=== PATIENT | male | born 1985 | race Caucasian/White ===

== ENCOUNTER 2019-11-09 07:55 | Emergency (ER) | payer OTHER ==
[~2019-11-09] VITALS: Ht 180.3 cm; Wt 118.4 kg
--- NOTE | 2019-11-09 08:06 | PHYS DOC ---
Past History Past Medical History: Asthma Past Surgical History: No Surgical History Smoking: Quit Less Than 1 Year Alcohol Use: Rarely Drug Use: None General Adult EDM: Chief Complaint: COUGH HPI: HPI: Patient is a 34 year old male who presents for evaluation of congestion, shortness of air and a bloody nose overnight. Pt is sweaty on arrival. Pt is currently living in the [facility] [address] and had recently been incarcerated at [place]. Pt is in mild distress on arrival. Pt has a history of asthma. Sats were 94% on arrival. Pt is in mild distress with minimal tachypnea. Pt needs asthma medication filled. Pt clarified he is NOT coughing up blood like initial staff assessment statement. Pt is in the negative pressure room. Pt has had a recent negative COVID swab in the past week that was negative. Review of Systems: Review of Systems: Constitutional: has fever or chills Eyes: Denies change in visual acuity HENT: has nasal congestion, sore throat and a recently bloody nose Respiratory: Denies cough but has shortness of breath Cardiovascular: Denies chest pain or edema GI: Denies abdominal pain, nausea, vomiting, bloody stools or diarrhea : Denies dysuria Musculoskeletal: Denies back pain or joint pain Integument: Denies rash Neurologic: Mild headache but no focal weakness or sensory changes Endocrine: Denies polyuria or polydipsia Lymphatic: Denies swollen glands Psychiatric: Denies depression or anxiety Heart Score: Risk Factors: Risk Factors: DM, Current or recent (<one month) smoker, HTN, HLP, family history of CAD, obesity. Risk Scores: Score 0 - 3: 2.5% MACE over next 6 weeks - Discharge Home Score 4 - 6: 20.3% MACE over next 6 weeks - Admit for Clinical Observation Score 7 - 10: 72.7% MACE over next 6 weeks - Early Invasive Strategies Physical Exam: PE: Constitutional: Well developed, well nourished, mild acute distress, non-toxic a ppearance. [] HENT: Normocephalic, atraumatic, bilateral external ears normal, oropharynx moist, no oral exudates, nose normal, no active nose bleed. [] Eyes: PERRL, EOMI, conjunctiva normal, no discharge. [] Neck: Normal range of motion, no tenderness, supple, no stridor. [] Cardiovascular:tachy rate, regular rhythm, no murmur [] Lungs & Thorax: Bilateral breath sounds clear to auscultation, no active wheezing [] Abdomen: Bowel sounds normal, soft, no tenderness, no masses, no pulsatile masses. [] Skin: Warm, dry, no erythema, no rash. [] Back: No tenderness. [] Extremities: No tenderness, no cyanosis, no clubbing, ROM intact, no edema. [] Neurologic: Alert and oriented X 3, normal motor function, normal sensory function, no focal deficits noted. [] Psychologic: Affect normal, judgement normal, mood normal. [] Current Patient Data: Labs: Laboratory Tests Test 11/09/19 08:43 White Blood Count 9.8 x10^3/uL Red Blood Count 4.54 x10^6/uL Hemoglobin 14.0 g/dL Hematocrit 40.1 % Mean Corpuscular Volume 88 fL Mean Corpuscular Hemoglobin 31 pg Mean Corpuscular Hemoglobin Concent 35 g/dL Red Cell Distribution Width 13.5 % Platelet Count 200 x10^3/uL Neutrophils (%) (Auto) 68 % Lymphocytes (%) (Auto) 16 % Monocytes (%) (Auto) 13 % Eosinophils (%) (Auto) 1 % Basophils (%) (Auto) 1 % Neutrophils # (Auto) 6.7 x10^3uL Lymphocytes # (Auto) 1.6 x10^3/uL Monocytes # (Auto) 1.3 x10^3/uL Eosinophils # (Auto) 0.1 x10^3/uL Basophils # (Auto) 0.1 x10^3/uL Sodium Level 140 mmol/L Potassium Level 3.3 mmol/L Chloride Level 103 mmol/L Carbon Dioxide Level 27 mmol/L Anion Gap 10 Blood Urea Nitrogen 13 mg/dL Creatinine 1.1 mg/dL Estimated GFR (Cockcroft-Gault) 75.7 BUN/Creatinine Ratio 12 Glucose Level 141 mg/dL Calcium Level 8.1 mg/dL Total Bilirubin 0.7 mg/dL Aspartate Amino Transf (AST/SGOT) 33 U/L Alanine Aminotransferase (ALT/SGPT) 42 U/L Alkaline Phosphatase 73 U/L Total Protein 6.4 g/dL Albumin 3.7 g/dL Albumin/Globulin Ratio 1.4 Current Medications Medications (Trade) Dose Ordered Sig/Elliott Route PRN Reason Start Time Stop Time Status Last Admin Dose Admin Sodium Chloride 1,000 ml @ 1,000 mls/hr 1X ONCE IV 11/09/19 08:15 11/09/19 08:15 DC Acetaminophen (Tylenol) 1,000 mg 1X ONCE PO 11/09/19 08:15 11/09/19 08:30 DC 11/09/19 08:28 EKG: EKG: [] Radiology/Procedures: Radiology/Procedures: [address] [address] IMAGING REPORT Signed PATIENT: EZEQUIEL CALDERON ACCOUNT: [id number] : 1985 LOCATION: ER AGE: 34 SEX: M EXAM STATUS: REG ER ORD. PHYSICIAN: MATEUS LIPSCOMB DO REASON: coughing up blood PROCEDURE: CHEST AP ONLY Study: CR CHEST AP ONLY Indication: Hemoptysis. Comparison: None. Findings: No confluent infiltrate. No pleural effusion or pneumothorax. No pneumomediastinum. Within normal limits cardiomediastinal silhouette for size given AP technique. The hilar vasculature is symmetric. Impression: No radiographic abnormality is identified to explain the patient's hemoptysis. Electronically signed by: GLENDY CONTI MD (11/09/2019 8:34 AM) [id number] DICTATED AND SIGNED BY: GLENDY CONTI MD DATE: 11/09/19 0834 CC: PCP,NO; MATEUS LIPSCOMB DO ~ [] Course & Med Decision Making: Course & Med Decision Making Pertinent Labs and Imaging studies reviewed. (See chart for details) [] Dragon Disclaimer: Dragon Disclaimer: This electronic medical record was generated, in whole or in part, using a voice recognition dictation system. 0830 lab results now known and are unremarkable. Patient states he has plenty of albuterol at his facility. Prescription for methylprednisolone given. Supportive care recommended. Patient given COVID discharge instructions although his test is not yet known. Patient states there is no current known COVID positve patient at that facility. However that facility had many positive cases in the past Departure Departure: Impression: Primary Impression: Asthma exacerbation Qualified Codes: J45.31 - Mild persistent asthma with (acute) exacerbation Additional Impressions: Bleeding nose URI (upper respiratory infection) Qualified Codes: J06.9 - Acute upper respiratory infection, unspecified Disposition: HOME/RESIDENCE PRIOR TO ADM Condition: STABLE Referrals: PCP,NO (PCP) LUCI BIGGS MD Patient Instructions: Asthma, Adult, Nosebleed Additional Instructions: You have been tested for or diagnosed with COVID-19. It is an infection caused by a new type of coronavirus. COVID-19 will cause cold-like or mild flu symptoms in most. It can cause more severe symptoms like problems breathing in some. There is no treatment for COVID-19. The body will clear the infection over time. Self-care will help to ease discomfort. Steps to Take: Self-Care Rest as needed. Healthy habits may help you feel better. Steps include: Choose healthy foods including fruits and vegetables. Drink water throughout the day. Get plenty of sleep each night. If you smoke, try to quit. It may ease breathing. Avoid alcohol. Keep Others Healthy The virus can spread to others. Droplets are released every time you sneeze or cough. The droplets can get into the mouth, nose, or eyes of people near you and lead to infection. To lower the chances of spreading COVID-19 to others: Stay at home until your doctor has said it is safe to leave. If you tested positive this will mean staying isolated until both of the following are true: At least 7 days have passed since the start of illness. You are free of fever for at least 72 hours without the use of medicine. During this time: - Avoid public areas, events, or transportation. Do not return to work or school until your doctor has said it is safe to do so. - Call ahead if you need to go to a medical center. Let them know you may have COVID-19. It will help them guide you where to go. They may also ask you to wear a facemask when you come to the office. - If you call for emergency medical services, let them know you may have COVID- 19. While at home: - Try to avoid close contact with others. Stay about 6 feet away. - If possible, spend most of your time in a separate room from others. - Use a face mask if you will be in close contact with others such as sharing a room or vehicle. - Have someone wipe down common surfaces in the home. Use household wellness program coordinator every day on areas like doorknobs, counters, or sinks. - Cough or sneeze into a tissue. Throw the tissue away right after use. If a tissue is not available, cough or sneeze into your elbow. - Wash your hands often. Wash them after sneezing or coughing. Use soap and water and wash for at least 20 seconds. Alcohol based hand cleaner and polisher can be used if soap and water is not available. - Do not prepare food for others. Avoid sharing personal items like forks, spoons, or toothbrushes. - Avoid close contact with pets while you are sick. There is no evidence of the virus passing to pets. This is a safety step until more is known about this virus. Isolation can be frustrating. Social interaction can help. Keep in touch with friends and family through phone and tech options. You can still interact with others in your home, just keep a safe distance of about 6 feet. Follow-up: Your doctors office will check in with you to see if there are any changes in your health. You may be asked to keep track of symptoms to share with them. They will also let you know when you are clear to be in public again. Problems to Look Out For: Contact your doctor if your recovery is not going as you expect. Get emergency care if you have problems such as: - Trouble breathing - Nonstop chest pain or pressure - Changes in awareness, confusion, or problems waking - Lips or face have bluish color - Worsening of symptoms If you think you have an emergency, call for emergency medical services right away. As taken from [facility] Methylprednisolone (MEDROL) 4 Mg Tab.ds.pk 1 PKG PO UD for asthma, #1 PKG Prov: MATEUS LIPSCOMB DO 11/09/19 Sodium Chloride (SALINE NASAL SPRAY) 30 Ml [place] 1-2 SPR NS Q2HR for nose bleed, #30 ML Prov: MATEUS LIPSCOMB DO 11/09/19 Justification of Admission: Justification of Admission: Justification of Admission Dx: N/A COVID-19 Assessment COVID-19 Patient Risks: Age 65 or older: No Sign of co-morbidity: Yes Exp to person + for COVID: Yes Exp to PUI: Yes Travel from affected area: No Lower respiratory symptoms: Yes Fever: Yes Other: Yes Comments: [address] and recent prisoner PPE Use: Full PPE with N95 mask or PAPR: Yes MATEUS LIPSCOMB DO Nov 09, 2019 08:06
[2019-11-09] MEDS ORDERED: IV NORMAL SALINE 1,000ML 1,000 ML IV ONE (08:15)
[2019-11-09] MEDS ORDERED: ACETAMINOPHEN 500 MG TABLET PO ONE (08:15)
--- NOTE | 2019-11-09 08:37 | RAD ---
Study: CR CHEST AP ONLY Indication: Hemoptysis. Comparison: None. Findings: No confluent infiltrate. No pleural effusion or pneumothorax. No pneumomediastinum. Within normal limits cardiomediastinal silhouette for size given AP technique. The hilar vasculature is symmetric. Impression: No radiographic abnormality is identified to explain the patient's hemoptysis. Electronically signed by: GLENDY CONTI MD (11/09/2019 8:34 AM) [id number]
[2019-11-09 08:54] VITALS: BP 99/50
[2019-11-09 09:07] LABS: BASO # 0.1 x10^3/uL (0.0-0.2); BASO % 1 % (0-3); EOS # 0.1 x10^3/uL (0.0-0.7); EOS % 1 % (0-3); HEMATOCRIT 40.1 % (39.0-53.0); LYMPH # 1.6 x10^3/uL (1.0-4.8); LYMPH % 16 % (24-48); MEAN CORPUSCULAR HEMOGLOBIN 31 pg (25-35); MEAN CORPUSCULAR HGB CONC 35 g/dL (31-37); MEAN CORPUSCULAR VOLUME 88 fL (79-100); MONO # 1.3 x10^3/uL (0.0-1.1); MONO % 13 % (0-9); NEUT # 6.7 x10^3uL (1.8-7.7); NEUT % 68 % (31-73); PLATELET COUNT 200 x10^3/uL (140-400); RED BLOOD COUNT 4.54 x10^6/uL (4.30-5.70); RED CELL DISTRIBUTION WIDTH 13.5 % (11.5-14.5); WHITE BLOOD COUNT 9.8 x10^3/uL (4.0-11.0)
[2019-11-09 09:13] LABS: CALCIUM 8.1 mg/dL (8.5-10.1); CREATININE 1.1 mg/dL (0.7-1.3); GFR 75.7; POTASSIUM 3.3 mmol/L (3.5-5.1)
[2019-11-09 09:19] LABS: ALBUMIN 3.7 g/dL (3.4-5.0); ALBUMIN/GLOBULIN RATIO 1.4 (1.0-1.7); TOTAL BILIRUBIN 0.7 mg/dL (0.2-1.0); TOTAL PROTEIN 6.4 g/dL (6.4-8.2)
[2019-11-09] MEDS ORDERED: SODI30SP NS (09:37)
[2019-11-09] MEDS ORDERED: METH4TAB2 PO (09:37)
--- NOTE | 2019-11-12 15:19 | NUR ---
IP: attempt to call with COVID-19 result, no voicemail available.
--- NOTE | 2019-11-12 15:25 | NUR ---
IP: patient notified of COVID-19 results.
== END 2019-11-09 09:50 | disposition home or self-care (01) ==
LOC: ER 07:55
DX: J45.31 Mild persistent asthma with (acute) exacerbation (principal); Z20.828 Contact with and (suspected) exposure to other viral communicable diseases; R04.0 Epistaxis; J06.9 Acute upper respiratory infection, unspecified; Z87.891 Personal history of nicotine dependence
CPT/HCPCS: 36415; 71045; 80053; 85025; 99284; C9803; U0003

== ENCOUNTER 2019-12-07 18:13 | Emergency (ER) | payer OTHER ==
[~2019-12-07] VITALS: Ht 182.9 cm; Wt 115.0 kg
[~2019-12-07 18:13] MED LIST: METH4TAB2 PO; SODI30SP NS
--- NOTE | 2019-12-07 18:25 | PHYS DOC ---
Past History Past Medical History: Anxiety, Asthma, Bipolar, Hypertension, Hypothyroid Past Medical History ADHD Past Surgical History: No Surgical History Smoking: Quit Less Than 1 Year Alcohol Use: Rarely Drug Use: None General Adult HPI: HPI: "..Its.my Asthma..I get bad every few months... usually and treatment gets it under control..." Patient is a 34 year old male who presents from [facility] complaints of exacerbation of his Asthma. Pt. states he has asthma exacerbations every 3 to 4 months. Usually when he has peak flows drop to below 275 he has problems. Patient does have allergies. Patient has a past medical history of hypertension ADHD, hypothyroidism, anxiety disorder, bipolar. Patient states he has meds for all his disorders with exception of ADHD. Patient is due to be released from [facility] on Monday. Patient does have a follow-up follow-up physician. Patient might be discharged to [facility]. Patient has not been intubated for his asthma. Patient is COVID test was negative on yesterday and the previous week. Review of Systems: Review of Systems: Constitutional: Denies fever or chills Eyes: Denies change in visual acuity HENT: Complains of nasal congestion and rhinorrhea Respiratory: Complains of wheezing Cardiovascular: Denies chest pain or edema GI: Denies abdominal pain, nausea, vomiting, bloody stools or diarrhea : Denies dysuria Musculoskeletal: Denies back pain or joint pain Integument: Denies rash Neurologic: Denies headache, focal weakness or sensory changes Endocrine: Denies polyuria or polydipsia Lymphatic: Denies swollen glands Psychiatric: Denies depression or anxiety Heart Score: HEART Score for Chest Pain: HEART Score for Chest Pain Response (Comments) Value History Slighlty/Non-Suspicious 0 ECG Normal 0 Age < 45 0 Risk Factors 1 or 2 Risk Factors 1 Total 1 Risk Factors: Risk Factors: DM, Current or recent (<one month) smoker, HTN, HLP, family history of CAD, obesity. Risk Scores: Score 0 - 3: 2.5% MACE over next 6 weeks - Discharge Home Score 4 - 6: 20.3% MACE over next 6 weeks - Admit for Clinical Observation Score 7 - 10: 72.7% MACE over next 6 weeks - Early Invasive Strategies Family History: Family History: Hypertension Current Medications: Current Meds: See nursing for home meds Allergies: Allergies: Allergies Coded Allergies Type Severity Reaction Last Updated Verified No Known Drug Allergies 11/09/19 No Physical Exam: PE: Constitutional: Well developed, well nourished, no acute distress, non-toxic appearance. [] HENT: Normocephalic, atraumatic, bilateral external ears normal, oropharynx moist, no oral exudates, nose swollen turbinates and clear rhinorrhea. Postnasal drainage.. Poor dentition Eyes: PERRLA, EOMI, conjunctiva normal, no discharge. Glasses Neck: Normal range of motion, no tenderness, supple, no stridor. [] Cardiovascular:Heart rate regular rhythm, no murmur [] Lungs & Thorax: Bilateral breath sounds equal at apex with few scattered wheezes on auscultation [] Abdomen: Bowel sounds normal, soft, no tenderness, no masses, no pulsatile masses. [] Skin: Warm, dry, no erythema, no rash. [] Back: No tenderness, no CVA tenderness. [] Extremities: No tenderness, no cyanosis, no clubbing, ROM intact, no edema. [] Neurologic: Alert and oriented X 3, normal motor function, normal sensory function, no focal deficits noted. [] Psychologic: Affect anxious, judgement normal, mood normal. [] EKG: EKG: [] Radiology/Procedures: Radiology/Procedures: [] Course & Med Decision Making: Course & Med Decision Making Pertinent Labs and Imaging studies reviewed. (See chart for details) Patient reports resolution of symptoms after 1 breathing test. Patient to use MDI 2 puffs 4 times a day with a spacer. Patient will start on prednisone 50 mg a day for 5 days. Keep follow-up primary care. Consider [id number] Claritin or Benadryl for allergy complaints. Follow-up primary care. Return if any concerns. [] Impression: 1. Asthma exacerbation 2. Seasonal allergies Sixto Disclaimer: Sixto Disclaimer: This electronic medical record was generated, in whole or in part, using a voice recognition dictation system. Departure Departure: Disposition: 01 HOME/RESIDENCE PRIOR TO ADM Condition: STABLE Referrals: PCP,JUDIE (PCP) Scripts Prednisone (PREDNISONE) 50 Mg Tablet 1 TAB PO DAILY for Asthma, #5 TAB Prov: GERMAIN BUENO MD 12/07/19 Justification of Admission: Justification of Admission: Justification of Admission Dx: N/A Dragon Disclaimer This chart was dictated in whole or in part using Voice Recognition software in a busy, high-work load, and often noisy Emergency Department environment. It may contain unintended and wholly unrecognized errors or omissions. Dragon Disclaimer This chart was dictated in whole or in part using Voice Recognition software in a busy, high-work load, and often noisy Emergency Department environment. It may contain unintended and wholly unrecognized errors or omissions. GERMAIN BUENO MD Dec 07, 2019 18:25
[2019-12-07] MEDS ORDERED: PRED50TA PO (18:29)
[2019-12-07] MEDS ORDERED: ALBUTEROL SULFATE 8GM INHALER. INH ONE (18:30)
[2019-12-07] MEDS ORDERED: predniSONE 10 MG TABLET PO ONE (18:30)
[2019-12-07] MEDS ORDERED: diphenhydrAMINE HCL 25 MG CAPSULE PO ONE (18:30)
[2019-12-07] MEDS ORDERED: IPRATRPIUM/ALBUTEROL 0.5/2.5MG 3 ML NEBU. ONE (18:37)
[2019-12-07 19:00] VITALS: BP 149/55
== END 2019-12-07 19:03 | disposition home or self-care (01) ==
LOC: ER 18:13
DX: J45.901 Unspecified asthma with (acute) exacerbation (principal); I10 Essential (primary) hypertension; E03.9 Hypothyroidism, unspecified; F90.9 Attention-deficit hyperactivity disorder, unspecified type; F41.9 Anxiety disorder, unspecified; F31.9 Bipolar disorder, unspecified; Z87.891 Personal history of nicotine dependence
CPT/HCPCS: 99283; J7512; J7613; Q0163